=== PATIENT | male | born 1965 | race Caucasian/White ===

== ENCOUNTER 2020-12-02 02:23 | Day surgery (SDC) | payer OTHER, SELFPAY ==
[2020-11-21 12:45] VITALS: BMI 29.7
--- NOTE | 2020-11-29 17:42 | P.PNAN_ITS ---
Anes - Eval Pre Procedure Procedure: Operation Date: 12/02/20 08:00 Proposed Procedures p Screening Colonoscopy - Adama Fernandez MD Date/Time: 11/29/20 17:42 Pre Op Diagnosis: neoplasm screening Patient Data Age: 55 Gender: M Height: 1.85 m Weight: 102.25 kg Allergies Allergy/AdvReac Type Severity Reaction Status Date / Time latex Allergy Mild RASH Verified 11/21/20 12:42 Home Medications Medication Instructions Recorded Confirmed Type cholecalciferol (vitamin D3) 50 2,000 unit PO DAILY 03/09/19 11/21/20 History mcg (2,000 unit) tablet -zty-vqt-other [id number] 1 cap PO DAILY 03/09/19 11/21/20 History oil 1,050 mg capsule tadalafil 20 mg tablet 20 mg PO DAILY PRN #90 tablet 11/22/19 11/21/20 Rx metoprolol succinate 50 mg 50 mg PO DAILY #90 tablet 07/25/20 11/21/20 Rx tablet,extended release 24 hr levothyroxine 50 mcg tablet See Rx Instructions .ROUTE 10/29/20 11/21/20 Rx .COMPLEX #90 tablet simvastatin 10 mg tablet See Rx Instructions .ROUTE 10/29/20 11/21/20 Rx .COMPLEX #90 tablet Patient hx anesthesia problems: none Family hx anesthesia problems: none PMFSH Past Medical History Medical History (Updated 11/29/20 @ 17:42 by Hayder Del Toro DO) Acquired hypothyroidism Essential (primary) hypertension Mixed hyperlipidemia Family History Family History Grandparent Diabetes mellitus Mother Family history of elevated blood lipids Father Family history of lung cancer, Onset Age: 56 Sibling Hypertension Social History Social History Smoking status: Never smoker Alcohol intake: current Drinks per week: 2 Living arrangements: with family Spiritual care concerns: No Exam Day of Procedure 11/29/20 17:42
[2020-12-02 06:52] VITALS: BP 129/96; PULSE 62; RESP 20; TEMP 35.6; O2SAT 100
[2020-12-02] MEDS: LACTATED RINGERS 1,000 ML 150 ML IV CONT (06:55)
--- NOTE | 2020-12-02 07:11 | P.PNAN_ITS ---
Anes - Eval Final PreProcedure Day of Procedure 12/02/20 07:11 Patient weight: obese Heart: regular rate and rhythm Lungs: clear to auscultation Airway: Mallampati scale class 1 Neurological: alert and oriented Last oral intake: >/= 8 hours ASA classification: III Emergent: no Anesthetic plan: proceed Anesthesia type and monitoring: general GIVS and standard monitoring Informed Consent: The patient's anesthetic plan and its attendant risks and be nefits were discussed with the patient/family/POA. Questions were solicited and answers provided to the satisfaction of the patient/family/POA.
--- NOTE | 2020-12-02 07:27 | P.CONGI_ITS ---
Assessment and Plan Assessment and plan (1) Family history of colonic polyps: Code(s): Z83.71 - Family history of colonic polyps Status: Acute Assessment and Plan: Patient's brother has had colon polyps. Patient presents today for follow-up examination colonoscopy encouraged at 5 year intervals. GI Consult Note Consult date/time: 12/02/20 07:27 HPI: Jeremy John is a 55 year old male Presents for surveillance screening colonoscopy. Patient states that his current weight appetite bowel movements are normal. He denies abdominal pain. He has had no bleeding. Last colonoscopy was 5 years ago. In the last 5 years patient's brother has been identified as having premalignant colon polyps. For this reason patient presents today for follow-up colonoscopy. Review of Systems Review of Systems: All systems reviewed & are unremarkable except as noted in HPI and below PMFSH Past Medical History Medical History (Updated 12/02/20 @ 07:28 by Adama Fernandez MD) Acquired hypothyroidism Essential (primary) hypertension Mixed hyperlipidemia Family History Family History Grandparent Diabetes mellitus Mother Family history of elevated blood lipids Father Family history of lung cancer, Onset Age: 56 Sibling Hypertension Social History Social History Smoking status: Never smoker Alcohol intake: current Drinks per week: 2 Living arrangements: with family Spiritual care concerns: No Meds Home Medications and Allergies Home Medications Medication Instructions Recorded Confirmed Type cholecalciferol (vitamin D3) 50 2,000 unit PO DAILY 03/09/19 12/02/20 History mcg (2,000 unit) tablet -cts-vip-other [id number] 1 cap PO DAILY 03/09/19 12/02/20 History oil 1,050 mg capsule tadalafil 20 mg tablet 20 mg PO DAILY PRN #90 tablet 11/22/19 12/02/20 Rx metoprolol succinate 50 mg 50 mg PO DAILY #90 tablet 07/25/20 12/02/20 Rx tablet,extended release 24 hr levothyroxine [Synthroid] 50 mcg PO DAILY 12/02/20 12/02/20 History simvastatin 10 mg PO DAILY 12/02/20 12/02/20 History Allergies Allergy/AdvReac Type Severity Reaction Status Date / Time latex Allergy Mild RASH Verified 12/02/20 06:50 Vital Signs Vital Signs - 24 hr 12/02/20 06:52 Temperature 96.1 F L Pulse Rate 62 Respiratory Rate 20 Blood Pressure 129/96 H Pulse Oximetry 100 Exam Narrative: Physical exam reveals patient to be alert. Vital signs stable. HEENT exam is unremarkable. Patient is anicteric. Lungs are clear to auscultation and percussion. Heart is without murmur or extra sounds. Abdominal exam bowel sounds are present soft nontender with no organomegaly. Digital external rectal exam normal.
[2020-12-02 08:04] VITALS: BP 103/67; PULSE 53; RESP 19; O2SAT 98
[2020-12-02 08:14] VITALS: BP 110/78; PULSE 56; RESP 19; O2SAT 99
[2020-12-02 08:24] VITALS: BP 124/84; PULSE 54; RESP 22; O2SAT 98
== END 2020-12-02 08:36 | disposition home or self-care (01) ==
PROVIDERS: PCP Family Medicine; Visit Provider Internal Medicine Gastroenterology
PROC: 0DJD8ZZ Inspection of Lower Intestinal Tract, Via Natural or Artificial Opening Endoscopic (ICD-10-PCS; CPT 45378; principal; 2020-12-02 08:00)
DX: Z12.11 Encounter for screening for malignant neoplasm of colon (principal); Z83.71 Family history of colonic polyps; I10 Essential (primary) hypertension; E78.2 Mixed hyperlipidemia; E03.9 Hypothyroidism, unspecified; E66.9 Obesity, unspecified; Z68.29 Body mass index [BMI] 29.0-29.9, adult
CPT/HCPCS: 45378; J2704; J7120